=== PATIENT | female | born 1945 | race Caucasian/White ===

== ENCOUNTER 2022-02-05 19:40 | Emergency (ER) | payer SELFPAY ==
[~2022-02-05] VITALS: Ht 167.6 cm; Wt 74.4 kg
[2022-02-05] MEDS ORDERED: SODIUM CHLORIDE 0.9% 500ML 500 ML IV STA (20:10)
[2022-02-05] MEDS ORDERED: HYDRALAZINE HCL 20 MG/ML VIAL IV STA (20:10)
[2022-02-05] MEDS ORDERED: ACETAMINOPHEN 325 MG TAB PO ONE (20:15)
[2022-02-05] MEDS ORDERED: KETOROLAC TROMETHAMINE 30 MG/ML VIAL IV ONE (20:15)
[2022-02-05] MEDS ORDERED: ONDANSETRON HCL INJ 2MG/ML 2ML 2 MG/ML VIAL IV ONE (20:15)
[2022-02-05] MEDS ORDERED: FAMOTIDINE 20 MG/2 ML VIAL IV ONE ×2 (20:15→20:52)
[2022-02-05] MEDS ORDERED: CLONIDINE HCL 0.1 MG TAB PO ONE ×2 (20:45→21:15)
[2022-02-05] MEDS ORDERED: ACETAMINOPHEN 325 MG TAB ONE (20:51)
[2022-02-05] MEDS ORDERED: ONDANSETRON HCL INJ 2MG/ML 2ML 2 MG/ML VIAL ONE (20:51)
[2022-02-05] MEDS ORDERED: CLONIDINE HCL 0.1 MG TAB ONE (20:51)
[2022-02-05] MEDS ORDERED: SODIUM CHLORIDE 0.9% 1000ML 1,000 ML ONE (20:51)
[2022-02-05] MEDS ORDERED: KETOROLAC TROMETHAMINE 30 MG/ML VIAL ONE (20:52)
[2022-02-05] MEDS ORDERED: CEFTRIAXONE 1 GM VIAL IV ONE (21:45)
[2022-02-05] MEDS ORDERED: AMLODIPINE BESYL5 MG PO (21:47)
[2022-02-05] MEDS ORDERED: LOSARTAN POTASS25 MG PO (21:47)
[2022-02-05] MEDS ORDERED: CIPRO500 MG PO (21:47)
[2022-02-05] MEDS ORDERED: CEFTRIAXONE 1 GM VIAL ONE (22:23)
[2022-02-05 22:40] VITALS: BP 101/59
== END 2022-02-05 22:40 | disposition home or self-care (01) ==
LOC: FSED 19:45
DX: R50.9 Fever, unspecified (principal); N39.0 Urinary tract infection, site not specified; I16.0 Hypertensive urgency; R51.9 Headache, unspecified; Z20.822 Contact with and (suspected) exposure to COVID-19; R94.31 Abnormal electrocardiogram [ECG] [EKG]
CPT/HCPCS: 71046; 80053; 81003; 82553; 83880; 84484; 85025; 87400; 99283; J0696; J1885; J2405; J7030; U0002; 93005